=== PATIENT | female | born 1950 | race Caucasian/White ===

== ENCOUNTER → 2023-04-22 | Outpatient (CLI) | payer MEDICARE, OTHER | LOC: M RAD 12:09 | PROVIDERS: ATTEND Surgery Vascular Surgery | DX: I87.2 Venous insufficiency (chronic) (peripheral) (principal); I89.0 Lymphedema, not elsewhere classified; I10 Essential (primary) hypertension; I77.1 Stricture of artery ==

== ENCOUNTER 2023-06-09 11:44 | Outpatient (RCR) | payer MEDICARE, OTHER | END 2023-06-17 | LOC: M PT 11:44 | PROVIDERS: ATTEND Surgery Vascular Surgery | DX: I89.0 Lymphedema, not elsewhere classified (principal) ==

== ENCOUNTER 2024-01-04 10:26 | Outpatient (RCR) | payer MEDICARE, OTHER | END 2024-01-16 | LOC: M PT 10:26 | PROVIDERS: ATTEND Surgery Vascular Surgery | DX: I89.0 Lymphedema, not elsewhere classified (principal) ==

== ENCOUNTER 2024-07-06 10:23 | Outpatient (RCR) | payer MEDICARE, OTHER | END 2024-07-17 02:22 | disposition home or self-care (01) | LOC: M PT 10:23 | PROVIDERS: ATTEND Surgery Vascular Surgery | DX: I89.0 Lymphedema, not elsewhere classified (principal) ==